=== PATIENT | female | born 1985 | race Two or more races ===

== ENCOUNTER 2017-02-14 09:50 | Emergency (ER) | payer MEDICAID ==
[~2017-02-14] VITALS: Ht 157.5 cm; Wt 63.5 kg
[~2017-02-14 09:50] MED LIST: CEPHALEXIN500 MG ORAL; IBUPROFEN600 M1 PO; IBUPROFEN600 MG ORAL; LIDOCAINE VISCO20 ML *; NORCO 5-325 TA1 EACH ORAL; OMEPRAZOLE20 M2 ORAL; RANITIDINE HCL150 MG ORAL; ZOFRAN ODT4 MG ORAL
[2017-02-14] MEDS ORDERED: NKM (10:11)
[2017-02-14 11:14] VITALS: BP 106/69
[2017-02-14 11:36] LABS: APPEARANCE,URINE CLOUDY; BILIRUBIN, URINE NEGATIVE (NEGATIVE); COLOR,URINE PALE YELLOW; GLUCOSE, URINE (UA) NEGATIVE (NEGATIVE); KETONES,URINE NEGATIVE (NEGATIVE); LEUKOCYTE ESTERASE ,URINE 3+ (NEGATIVE); NITRITE,URINE NEGATIVE (NEGATIVE); PH,URINE 6 (4.5-8.0); PROTEIN,URINE NEGATIVE (NEGATIVE); UROBILINOGEN,URINE NORMAL MG/DL (0.0-1.0)
[2017-02-14 11:38] LABS: BASOPHILS % (AUTO) 0.6 % (0.0-2.0); EOSINOPHILS % (AUTO) 0.5 % (0.0-3.0); HEMATOCRIT 34.5 % (37.0-47.0); HEMOGLOBIN 10.8 G/DL (12.0-16.0); LYMPHOCYTES % (AUTO) 19.6 % (20.0-45.0); MEAN CORPUSCULAR VOLUME 84 FL (80-99); MONOCYTES % (AUTO) 5.5 % (1.0-10.0); NEUTROPHILS % (AUTO) 73.7 % (45.0-75.0); PLATELET COUNT 320 K/UL (150-450); RED BLOOD COUNT 4.11 M/UL (4.20-5.40); RED CELL DISTRIBUTION WIDTH 14.3 % (11.6-14.8); WHITE BLOOD COUNT 8.5 K/UL (4.8-10.8)
[2017-02-14 11:52] LABS: ANION GAP 8 mmol/L (5-15); BLOOD UREA NITROGEN 11 mg/dL (7-18); CALCIUM 9.5 MG/DL (8.5-10.1); CARBON DIOXIDE 27 MMOL/L (21-32); CHLORIDE 105 MMOL/L (98-107); CREATININE 0.8 MG/DL (0.55-1.30); POTASSIUM 3.6 MMOL/L (3.5-5.1); SODIUM 140 MMOL/L (136-145)
[2017-02-14 11:58] LABS: ALANINE AMINOTRANSFERASE 23 U/L (12-78); ALBUMIN 4.2 G/DL (3.4-5.0); ALBUMIN/GLOBULIN RATIO 0.9 (1.0-2.7); ALKALINE PHOSPHATASE 54 U/L (46-116); ASPARTATE AMINO TRANSFERASE 13 U/L (15-37); BILIRUBIN,TOTAL 0.3 MG/DL (0.2-1.0); CREATINE KINASE 55 U/L (26-308)
[2017-02-14 12:14] VITALS: BP 107/58
[2017-02-14 13:00] VITALS: BP 115/64
--- NOTE | 2017-02-14 13:03 | Diagnostic Imaging Report ---
Indication: Shortness of breath Technique: CHEST 1 VIEW Comparison: 07/12/2015 Findings: Heart size and mediastinal contours are within normal limits given technique. There is no focal consolidation, pneumothorax or pleural effusion. Osseous structures demonstrate no acute abnormality. Impression: No radiographic evidence of acute cardiopulmonary disease.
--- NOTE | 2017-02-14 13:34 | Emergency Room Report ---
History of Present Illness General Chief Complaint: Dizziness Source: Patient Present Illness HPI The patient woke up yesterday and felt confused and unsteady on her feet. Apparently someone had left the wall heater on and she is concerned whether she might be exposed to carbon monoxide. She still felt somewhat confused although somewhat improved today. She denies being around cigarette smoke, doesn't smoke. She had ingested the edible THC 2 nights ago. She has a 6/10 headache at this time. Denies any nausea or vomiting. No fevers, chills, rashes, change in vision, dysuria, abnormal menses, extremity pain, abdominal pain. No major medical problems. 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 Last Menstrual Period: Feb 01 Now: No Reviewed Nursing Documentation: PMH: Agreed, PSxH: Agreed Nursing Documentation-PMH Past Medical History: No Stated History Review of Systems All Other Systems: negative except mentioned in HPI Physical Exam Vital Signs Date Time Temp Pulse Resp B/P (MAP) Pulse Ox O2 Delivery O2 Flow Rate FiO2 02/14/17 10:06 97.9 74 16 153/76 100 Room Air Sp02 EP Interpretation: reviewed, normal General Appearance: well appearing, no apparent distress, GCS 15 Head: normocephalic Eyes: bilateral eye normal inspection, bilateral eye PERRL, bilateral eye EOMI ENT: moist mucus membranes Neck: supple Respiratory: lungs clear, normal breath sounds Cardiovascular #1: regular rate, rhythm Cardiovascular #2: 2+ radial (R) Gastrointestinal: normal inspection, normal bowel sounds, non tender, no mass, non-distended Musculoskeletal: back normal, gait/station normal, normal range of motion Neurologic: alert, oriented x3, 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 Differential includes, electrolyte abnormalities, carbon monoxide poisoning, dehydration, adverse reaction to cannabis amongst others. The patient will be evaluated with labs including a venous carbon monoxide level. The patient be treated with oxygen and tylenol. EKG no injury. CXR clear. Labs unremarkable except for pyuria. Delay for CO level. Carbon monoxide is 4.5. This is greater than 24 hours post possible exposure with symptoms of [place], confusion and unsteady gait. The patient is treated with 100% oxygen at this time. Investigating for possible hyperbaric treatment. Discussed with Dr. Camarillo [facility] hyperbaric unit. He feels need to repeat CO, if < 3 OK to go home. Considering also transfer [facility]. Presented to MD at [facility] and explained awaiting repeat CO level. Repeating CO. Repeat CO - 0.4 Patient improved and discussed observation at home with need for evaluation by [employer] to exclude CO emissions. Advised against cannabis. Patient also given rx for UTI. Patient stable for outpatient observation and treatment. Laboratory Tests Test 02/14/17 10:33 02/14/17 10:35 02/14/17 11:14 02/14/17 15:05 Venous Blood pH Pending Pending Venous Blood Partial Pressure CO2 Pending Pending Venous Blood Partial Pressure O2 Pending Pending Venous Blood HCO3 Pending Pending Venous Blood Total Carbon Dioxide Pending Pending Venous Bld O2 Saturation (Measured) 143.1 46.0 Venous Blood Oxygen Saturation Pending Pending Venous Blood Base Excess Pending Pending Methemoglobin 0.7 0.7 Sodium (Blood Gas) Pending Pending Urine Color Pale yellow Urine Appearance Cloudy Urine pH 6 (4.5-8.0) Urine Specific [place] 1.010 (1.005-1.035) Urine Protein Negative (NEGATIVE) Urine Glucose (UA) Negative (NEGATIVE) Urine Ketones Negative (NEGATIVE) Urine Occult Blood 1+ (NEGATIVE) H Urine Nitrite Negative (NEGATIVE) Urine Bilirubin Negative (NEGATIVE) Urine Urobilinogen Normal MG/DL (0.0-1.0) Urine Leukocyte Esterase 3+ (NEGATIVE) H Urine RBC 0-2 /HPF (0 - 2) Urine WBC Tntc /HPF (0 - 2) H Urine Squamous Epithelial Cells Many /LPF (NONE/OCC) H Urine Bacteria Few /HPF (NONE) Urine HCG, Qualitative Negative Urine Opiates Screen Negative (NEGATIVE) Urine Barbiturates Screen Negative (NEGATIVE) Phencyclidine (PCP) Screen Negative (NEGATIVE) Urine Amphetamines Screen Negative (NEGATIVE) Urine Benzodiazepines Screen Negative (NEGATIVE) Urine Cocaine Screen Negative (NEGATIVE) Urine Marijuana (THC) Screen Positive (NEGATIVE) H White Blood Count 8.5 K/UL (4.8-10.8) Red Blood Count 4.11 M/UL (4.20-5.40) L Hemoglobin 10.8 G/DL (12.0-16.0) L Hematocrit 34.5 % (37.0-47.0) L Mean Corpuscular Volume 84 FL (80-99) Mean Corpuscular Hemoglobin 26.2 PG (27.0-31.0) L Mean Corpuscular Hemoglobin Concent 31.3 G/DL (32.0-36.0) L Red Cell Distribution Width 14.3 % (11.6-14.8) Platelet Count 320 K/UL (150-450) Mean Platelet Volume 8.4 FL (6.5-10.1) Neutrophils (%) (Auto) 73.7 % (45.0-75.0) Lymphocytes (%) (Auto) 19.6 % (20.0-45.0) L Monocytes (%) (Auto) 5.5 % (1.0-10.0) Eosinophils (%) (Auto) 0.5 % (0.0-3.0) Basophils (%) (Auto) 0.6 % (0.0-2.0) Prothrombin Time 10.0 SEC (9.30-11.50) Prothrombin Time INR 1.0 (0.9-1.1) PTT 26 SEC (23-33) Sodium Level 140 MMOL/L (136-145) Potassium Level 3.6 MMOL/L (3.5-5.1) Chloride Level 105 MMOL/L (98-107) Carbon Dioxide Level 27 MMOL/L (21-32) Anion Gap 8 mmol/L (5-15) Blood Urea Nitrogen 11 mg/dL (7-18) Creatinine 0.8 MG/DL (0.55-1.30) Estimate Glomerular Filtration Rate > 60 mL/min (>60) Glucose Level 130 MG/DL (74-106) H Calcium Level 9.5 MG/DL (8.5-10.1) Total Bilirubin 0.3 MG/DL (0.2-1.0) Aspartate Amino Transferase (AST) 13 U/L (15-37) L Alanine Aminotransferase (ALT) 23 U/L (12-78) Alkaline Phosphatase 54 U/L (46-116) Total Creatine Kinase 55 U/L (26-308) Troponin I 0.000 ng/mL (0.000-0.056) Total Protein 8.9 G/DL (6.4-8.2) H Albumin 4.2 G/DL (3.4-5.0) Globulin 4.7 g/dL Albumin/Globulin Ratio 0.9 (1.0-2.7) L EKG Diagnostic Results Rate: normal Rhythm: NSR ST Segments: no acute changes Rhythm Strip Diag. Results EP Interpretation: yes Rhythm: NSR, no PVC's, no ectopy Chest X-Ray Diagnostic Results Chest X-Ray Diagnostic Results : Chest X-Ray Ordered: Yes # of Views/Limited/Complete: 1 View Indication: Other EP Interpretation: Yes Interpretation: no consolidation, no effusion, no pneumothorax, no acute cardiopulmonary disease Impression: No acute disease Electronically Signed by: Ancelmo Diana MD Last Vital Signs Date Time Temp Pulse Resp B/P (MAP) Pulse Ox O2 Delivery O2 Flow Rate FiO2 02/14/17 16:15 66 19 102/52 100 Room Air 02/14/17 12:14 97.7 Status: improved Disposition: HOME, SELF-CARE Condition: Improved Scripts Nitrofurantoin Monohyd/M-Cryst* (MACROBID 100 MG*) 100 Mg Capsule 100 MG ORAL EVERY 12 HOURS, #14 CAP Prov: Ancelmo Diana M.D. 02/14/17 Acetaminophen (Tylenol) 325 Mg Tablet 650 MG ORAL Q6H Y for Prn Pain/Headache/Temp > 101, #16 TAB 0 Refills Prov: Ancelmo Diana M.D. 02/14/17 Ondansetron Odt* (ZOFRAN ODT*) 4 Mg Tab.rapdis 4 MG ORAL Q8H Y for Nausea & Vomiting, #6 TAB 0 Refills Prov: Ancelmo Diana M.D. 02/14/17 [facility]ERR[facility] (PCP) Ancelmo Diana M.D. Feb 14, 2017 13:34
[2017-02-14 14:32] VITALS: BP 129/63
[2017-02-14] MEDS ORDERED: TYLENOL325 MG ORAL (15:19)
[2017-02-14] MEDS ORDERED: ZOFRAN ODT4 MG ORAL (15:19)
[2017-02-14] MEDS ORDERED: NITROFURANTOIN100 M2 ORAL (15:46)
[2017-02-14 16:15] VITALS: BP 102/52
--- NOTE | 2017-02-17 14:46 | Cardiology Report ---
APPROVED REPORT EKG Measurement Heart [id number] Normal sinus rhythm with sinus arrhythmia Normal ECG
== END 2017-02-14 16:17 | disposition home or self-care (01) ==
LOC: EMR 10:20 → CANBEDREQ 15:49 → EMR 16:17
DX: N30.00 Acute cystitis without hematuria (principal); Z77.110 Contact with and (suspected) exposure to air pollution; F12.10 Cannabis abuse, uncomplicated
CPT/HCPCS: 36415; 71010; 80053; 80307; 81003; 81025; 82550; 84484; 85025; 85610; 85730; 87086; 93005; 96361; 96374; 99284; J2405